=== PATIENT | female | born 1985 | race American Indian/Alaskan Native ===

== ENCOUNTER 2019-11-14 23:07 | Outpatient (CLI) | payer BC ==
[2019-11-14] MEDS ORDERED: LACTATED RINGERS 1,000 ML IV ONE (23:15)
[2019-11-14 23:47] VITALS: BP 120/62
--- NOTE | 2019-11-15 00:01 | Ultrasound Report ---
US OB limited INDICATION / CLINICAL INFORMATION: twin gestation- leaking fluid. COMPARISON: None available. FINDINGS: Viable twin is noted. Twin A heart rate is 144, twin B heart rate is 149. lie is manoj ch. Amniotic fluid index is within normal limits. IMPRESSION: 1. Viable twin . Amniotic fluid index is within normal limits. Signer Name: Newton Tilley MD Signed: 11/14/2019 11:57 PM Workstation Name: [id number]
[2019-11-15 00:18] LABS: Bacteria,Urine 1+ /HPF (Negative); Bilirubin,Urine NEG (Negative); Blood,Urine NEG (Negative); Color,Urine Yellow (Yellow); Mucus,Urine FEW /HPF; Protein,Urine <15 mg/dL mg/dL (Negative); Urobilinogen,Urine < 2.0 mg/dL (<2.0)
== END 2019-11-15 00:36 | disposition home or self-care (01) ==
LOC: TRG 23:07
PROVIDERS: ATTEND Obstetrics & Gynecology
DX: O42.912 Preterm premature rupture of membranes, unspecified as to length of time between rupture and onset of labor, second trimester (principal); Z3A.21 21 weeks gestation of pregnancy
CPT/HCPCS: 76815; 81001

== ENCOUNTER 2020-02-20 17:02 | Outpatient (CLI) | payer BC ==
[2020-02-20 17:37] VITALS: BP 117/79
[2020-02-20] MEDS ORDERED: LACTATED RINGERS 500 ML IV ONE (18:14)
--- NOTE | 2020-02-20 18:47 | Ultrasound Report ---
CLINICAL DATA: well-being TECHNICAL DATA: Document breath, motion, gestational age, tone, and fluid. FINDINGS: Twin gestation Fetus A respiration, tone, and motion are well visualized and normal. Amniotic fluid volume is normal. Biophysical profile score is 8/8. The lower uterine segment is evaluated and there is no evidence of placenta previa. heart rate is Heart Rate.150 Fetus B respiration, tone, and motion are well visualized and normal. Amniotic fluid volume is normal. Biophysical profile score is 8/8. The lower uterine segment is evaluated and there is no evidence of placenta previa. heart rate is Heart Rate.140 IMPRESSION: The biophysical profile score is 8/8 for both fetus a and fetus B. Signer Name: Humberto Braga MD Signed: 02/20/2020 6:43 PM Workstation Name: [id number]
[2020-02-20 19:16] LABS: Bacteria,Urine 1+ /HPF (Negative); Bilirubin,Urine NEG (Negative); Blood,Urine NEG (Negative); Color,Urine Straw (Yellow); Protein,Urine <15 mg/dL mg/dL (Negative); Urobilinogen,Urine < 2.0 mg/dL (<2.0)
[2020-02-20] MEDS ORDERED: LACTATED RINGERS 1,000 ML IV SCH (20:00)
== END 2020-02-20 20:25 | disposition home or self-care (01) ==
LOC: TRG 17:02 → APU 17:03 → TRG 20:25
PROVIDERS: ATTEND Obstetrics & Gynecology
DX: O36.8330 Maternal care for abnormalities of the fetal heart rate or rhythm, third trimester, not applicable or unspecified (principal); O30.003 Twin pregnancy, unspecified number of placenta and unspecified number of amniotic sacs, third trimester; O09.523 Supervision of elderly multigravida, third trimester; O47.03 False labor before 37 completed weeks of gestation, third trimester; O99.513 Diseases of the respiratory system complicating pregnancy, third trimester; J45.909 Unspecified asthma, uncomplicated; Z3A.35 35 weeks gestation of pregnancy
CPT/HCPCS: 59025; 76819; 81001; 96360; 96361; J7120